=== PATIENT | male | born 1980 | race American Indian/Alaskan Native ===

== ENCOUNTER 2018-11-07 16:40 | Emergency (ER) | payer SELFPAY ==
--- NOTE | 2018-11-07 17:14 | CT ---
Date of service: 11/07/2018 PROCEDURE: CT HEAD WITHOUT CONTRAST. HISTORY: new onset seizure COMPARISON: None available. TECHNIQUE: Axial computed tomography images were obtained through the head/brain without intravenous contrast. Radiation dose: Total exam DLP = 812.1 mGy-cm. This CT exam was performed using one or more of the following dose reduction techniques: Automated exposure control, adjustment of the mA and/or kV according to patient size, and/or use of iterative reconstruction technique. FINDINGS: HEMORRHAGE: No intracranial hemorrhage. BRAIN: No mass effect or edema. No atrophy or chronic microvascular ischemic changes. VENTRICLES: Unremarkable. No hydrocephalus. CALVARIUM: Unremarkable. PARANASAL SINUSES: Unremarkable as visualized. No significant inflammatory changes. MASTOID AIR CELLS: Unremarkable as visualized. No inflammatory changes. OTHER FINDINGS: None. IMPRESSION: No acute intracranial pathology.
[2018-11-07 17:39] LABS: BASO % 0.6 % (0.0-2.0); EOS % 0.3 % (0.0-4.0); HEMOGLOBIN 15.4 g/dL (12.0-18.0); LYMPH # 1.2 K/uL (1.0-4.3); LYMPH % 19.8 % (20.0-40.0); MEAN CELL VOLUME 96.4 fl (80.0-94.0); MEAN CORPUSCULAR HEMOGLOBIN 32.6 pg (27.0-31.0); MEAN CORPUSCULAR HGB CONC 33.8 g/dL (33.0-37.0); MEAN PLATELET VOLUME 9.1 fl (7.2-11.7); MONO # 0.5 K/uL (0.0-0.8); MONO % 8.2 % (0.0-10.0); NEUT # 4.4 K/uL (1.8-7.0); NEUT % 71.1 % (50.0-75.0); RBC 4.74 Mil/uL (4.40-5.90); RED CELL DISTRIBUTION WIDTH 13.8 % (11.5-14.5); WHITE BLOOD COUNT 6.1 K/uL (4.8-10.8)
[2018-11-07 17:44] LABS: ALB/GLOB RATIO 1.4 (1.0-2.1); ALBUMIN 4.6 g/dL (3.5-5.0); ALT/SGPT 29 U/L (21-72); AST/SGOT 30 U/L (17-59); BLOOD UREA NITROGEN 14 mg/dl (9-20); CALCIUM 9.9 mg/dL (8.4-10.2); GFR NON-AFRICAN AMERICAN > 60
--- NOTE | 2018-11-07 17:52 | ED PDOC ---
HPI: Seizure Time Seen by Provider: 11/07/18 16:50 Chief Complaint (Nursing): Seizure Chief Complaint (Provider): Seizure History Per: Patient History/Exam Limitations: no limitations Recent Seizure Activity Began: Just Before Arrival Associated Symptoms: denies: Bit Tongue, Incontinence Of Urine, Incontinence Of Stool, Injury As A Result Of Seizure Activity Additional Complaint(s): 37 y/o male [place]. Patient is awake alert and unsure if he had seizure; however, feels mildly confused with delay answering questions. Patient admits to alcohol use this morning and marijuana use daily. Denies trauma, headache, incontinence, or biting tongue. Patient denies history of seizures. Past Medical History Reviewed: Historical Data, Nursing Documentation, Vital Signs Vital Signs: Last Vital Signs Temp 99.3 F 11/07/18 16:42 Pulse 102 H 11/07/18 16:42 Resp 17 11/07/18 16:42 BP 135/94 H 11/07/18 16:42 Pulse Ox 100 11/07/18 16:42 - Medical History PMH: Denies: Seizures - Surgical History Surgical History: No Surg Hx - Family History Family History: States: Unknown Family Hx - Social History Alcohol: Other (frequent) Drugs: Cannabis - Allergies Allergies/Adverse Reactions: Allergies Allergy/AdvReac Type Severity Reaction Status Date / Time No Known Allergies Allergy Verified 11/07/18 16:43 Review of Systems Review Of Systems: ROS cannot be obtained secondary to pt's inabilty to answer questions. (unreliable) Physical Exam - Reviewed Nursing Documentation Reviewed: Yes Vital Signs Reviewed: Yes - Physical Exam Appears: Positive for: Well, Non-toxic, No Acute Distress Head Exam: Positive for: ATRAUMATIC, NORMAL INSPECTION, NORMOCEPHALIC Skin: Positive for: Normal Color, Warm, Dry Eye Exam: Positive for: EOMI, Normal appearance, PERRL ENT: Positive for: Normal ENT Inspection Neck: Positive for: Normal, Painless ROM, Supple Cardiovascular/Chest: Positive for: Regular Rate, Rhythm, Tachycardia (mild tachycardia on triage). Negative for: Murmur Respiratory: Positive for: Normal Breath Sounds. Negative for: Respiratory Distress Gastrointestinal/Abdominal: Positive for: Normal Exam, Soft. Negative for: Tenderness Back: Positive for: Normal Inspection Extremity: Positive for: Normal ROM. Negative for: Pedal Edema, Deformity Neurologic/Psych: Positive for: Alert, Oriented (oriented x3 however with mild confusion). Negative for: Motor/Sensory Deficits - Laboratory Results Result Diagrams: 11/07/18 17:29 11/07/18 17:29 Lab Results: Total Bilirubin 0.5 mg/dl (0.2-1.3) 11/07/18 17:29 AST 30 U/L (17-59) 11/07/18 17:29 ALT 29 U/L (21-72) 11/07/18 17:29 Alkaline Phosphatase 46 U/L (38-126) 11/07/18 17:29 Total Protein 8.0 G/DL (6.3-8.2) 11/07/18 17: Albumin 4.6 g/dL (3.5-5.0) 11/07/18 17:29 Globulin 3.4 gm/dL (2.2-3.9) 11/07/18 17: Albumin/Globulin Ratio 1.4 (1.0-2.1) 11/07/18 17:29 - ECG O2 Sat by Pulse Oximetry: 100 (RA) Pulse Ox Interpretation: Normal Medical Decision Making Medical Decision Making: Time: 16:55 Initial Impression: workup for nuance of seizure; r/o substance abuse/alcohol intoxication. Obtain CT brain, blood work, and monitor for neuro checks. Initial Plan: * CT Head w/o contrast * EKG * Alcohol serum * CMP * Drug screen * CBC w/ diff labs and imaging report reviewed, no clinically significant findings 7p- pt admitted to smoking PCP but is cooperative, ambulatory w stable gait and awaiting [facility] to pick him up. 8p- [facility] arrived to escort home, gait stable and clear speech. Scribe Attestation: Documented by Henry Murcia, acting as a scribe for Andriy Jameson III, MD. Provider Scribe Attestation: All medical record entries made by the Scribe were at my direction and personally dictated by me. I have reviewed the chart and agree that the record accurately reflects my personal performance of the history, physical exam, medical decision making, and the department course for this patient. I have also personally directed, reviewed, and agree with the discharge instructions and disposition. Disposition - Clinical Impression Clinical Impression: Substance abuse, Generalized seizure Counseled Patient/Family Regarding: Studies Performed - Disposition Referrals: [facility] [Outside] Ben Man MD [Medical Doctor] - Disposition: Routine/Home Disposition Time: 20:00 Condition: CRITICAL Additional Instructions: Return to ER for any new or worsening symptoms. AVOID DRUG OR ALCOHOL USE. DO NOT DRIVE A CAR OR OPERATE MACHINERY UNTIL YOU ARE CLEARED BY NEUROLOGY OR YOUR DOCTOR. Instructions: Seizures, Adult (DC), Polysubstance Abuse (DC) Forms: [facility] [facility] ([employer])
[2018-11-07 20:06] VITALS: BP 138/70; PULSE 88; RESP 16; TEMP 99
[2018-11-07 20:55] VITALS: O2SAT 100
--- NOTE | 2018-11-08 07:22 | CARD ---
APPROVED REPORT Date of service: 11/07/2018 EKG Measurement Heart [id number] <Conclusion> Normal sinus rhythm Normal ECG
== END 2018-11-07 20:07 | disposition home or self-care (01) ==
LOC: MERGE 16:40 → H.ER 16:40
DX: R56.9 Unspecified convulsions (principal); F19.10 Other psychoactive substance abuse, uncomplicated
CPT/HCPCS: 70450; 80053; 82948; 85025; 93005; 99285; G0480